=== PATIENT | female | born 1945 | race Caucasian/White ===

== ENCOUNTER 2019-11-16 06:35 | Day surgery (SDC) | payer OTHER ==
[~2019-11-16] VITALS: Ht 147.3 cm; Wt 57.0 kg
[~2019-11-16 06:35] MED LIST: ATOR10 PO; Adult Low Dose81 MG PO; CALMAGZIN PO; HYDR1TAB94 PO; IBUPROFEN200 MG PO; MAGNESIUM-VIT1 EACH PO; VITAMIN B12-FO1 EACH PO; Vitamin D2000 UNIT PO
[2019-11-16] MEDS ORDERED: LISI5 (07:10)
--- NOTE | 2019-11-16 07:18 | NUR ---
11/16/19 0718 Cyndi Lewis 1ST IV INFLITRATED, MISSED SECOND, REQUESTED HELP. DAMION
== END 2019-11-16 08:31 | disposition home or self-care (01) ==
LOC: ORSCSDS 06:35
PROVIDERS: Orthopaedic Surgery
PROC: 01N50ZZ Release Median Nerve, Open Approach (ICD-10-PCS; principal; 2019-11-16 07:30)
DX: G56.01 Carpal tunnel syndrome, right upper limb (principal); I10 Essential (primary) hypertension; E78.5 Hyperlipidemia, unspecified; Z79.82 Long term (current) use of aspirin; Z79.899 Other long term (current) drug therapy
CPT/HCPCS: J1100; J2250; J2405; J2704; J3010; J7120

== ENCOUNTER → 2020-08-11 | Outpatient (CLI) | payer OTHER ==
[~2020-08-11] MED LIST changes: +LISI5
== END ==
LOC: LAB SHORT 14:29 → LAB 14:29
DX: R21 Rash and other nonspecific skin eruption (principal)
CPT/HCPCS: 88312; 88313